=== PATIENT | female | born 1990 ===

== ENCOUNTER 2023-10-04 08:32 | Outpatient (CLI) | payer OTHER, SELFPAY ==
--- NOTE | ~2023-10-04 | XR_ITS ---
EXAMINATION: XR lumbar spine 2-3V DATE: 10/04/2023 09:04 INDICATION: Lumbar radiculopathy TECHNIQUE: Anteroposterior and lateral views of the lumbar spine, and cone-down lateral view of the l umbosacral junction were obtained. COMPARISON: None. FINDINGS: No fracture, dislocation, or subluxation. The vertebral body heights, alignment, and interv ertebral disc spaces are normal. The paravertebral soft tissues are unremarkable. IMPRESSION: 1. No acute osseous abnormality. 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
--- NOTE | ~2023-10-04 | XR_ITS ---
EXAMINATION: XR hip RT min 2V DATE: 10/04/2023 09:04 INDICATION: Left hip pain TECHNIQUE: Two views of left hip were obtained. COMPARISON: None. FINDINGS: Bone alignment is normal. There is no fracture. Phleboliths are noted in the pelvis. IMPRESSION: 1. No acute osseous abnormality. Reviewed, dictated and finalized at location L. [employer] MA[employer]GER
== END 2023-10-04 08:33 | disposition home or self-care (01) ==
LOC: CHSIMG 08:46
PROVIDERS: PCP Physician Assistant; Visit Provider Physician Assistant
DX: M25.552 Pain in left hip (principal); M54.16 Radiculopathy, lumbar region
CPT/HCPCS: 72100; 73502